=== PATIENT | female | born 1950 | race Caucasian/White ===

== ENCOUNTER → 2017-03-29 | Outpatient (CLI) | payer MEDICARE ==
--- NOTE | 2017-03-29 14:29 | CT ---
EXAMINATION TYPE: CT chest wo con DATE OF EXAM: 03/29/2017 COMPARISON: 06/12/2016 HISTORY: Abnormal findings of lung field CT DLP: 151.30 mGycm, Automated exposure control for dose reduction was used. CONTRAST: Performed injected with 0 mL of Omnipaque 300. TECHNIQUE: Axial images were obtained at 5 mm thick sections. Reconstructed images are reviewed on [employer] computer in the coronal plane. FINDINGS: Portion of the thyroid visualized is normal. No suspicious lung nodules or focal infiltrates are present. Some chronic apical scarring appears to be present. Previous punctate nodularity in the posterior peripheral right lung is less well visualized currently is present series 4 image 16. The right upper lobe nodule previously identified is not evident on th e current examination. The 0.6 cm pleural-based nodule within the lingula is stable, series 4 image 3 6. No enlarged mediastinal or hilar adenopathy is evident. The ascending aorta diameter at the level o f the main pulmonary artery is 2.9 cm. The main pulmonary artery diameter at the bifurcation is 2.0 cm. Minimal pericardial effusion may be present. Limited CT sections are obtained through the upper abdomen. Abdomen is essentially unremarkable. IMPRESSIONS: 1. Minimal pericardial effusion. 2. Stable punctate nodularities within the lung carter.
== END | disposition home or self-care (01) ==
LOC: RADCTMAIN 12:42
PROVIDERS: ATTEND Family Medicine
DX: R91.8 Other nonspecific abnormal finding of lung field (principal); I31.3 Pericardial effusion (noninflammatory)
CPT/HCPCS: 71250

== ENCOUNTER → 2017-04-03 | Outpatient (CLI) | payer MEDICARE ==
--- NOTE | 2017-04-04 10:59 | ECHOF ---
Referral Reason:Pericardial Effusion I31.3 MEASUREMENTS -------- HEIGHT: 162.6 cm WEIGHT: 59.9 kg BP: IVSd: 1.0 cm (0.6 - 1.1) LVIDd: 4.2 cm (3.9 - 5.3) LVPWd: 0.9 cm (0.6 - 1.1) IVSs: 1.1 cm LVIDs: 3.1 cm LVPWs: 0.8 cm LA Diam: 2.6 cm (2.7 - 3.8) LAESV Index (A-L): 31.61 ml/m Ao Diam: 2.7 cm (2.0 - 3.7) AV Cusp: 1.7 cm (1.5 - 2.6) LA Diam: 3.0 cm (2.7 - 3.8) MV EXCURSION: 27.332 mm (> 18.000) MV EF SLOPE: 132 mm/s (70 - 150) EPSS: 0.3 cm MV E Ed: 0.74 m/s MV DecT: 186 ms MV A Ed: 0.22 m/s MV E/A Ratio: 3.35 RAP: 5.00 mmHg RVSP: 17.61 mmHg FINDINGS -------- Sinus rhythm. This was a technically good study. LV size, wall thickness and systolic function are normal, with an EF greater than 55%. The right ventricle is normal in size. LA is midly dilated 29-33ml/m2. The right atrial size is normal. The aortic valve is trileaflet, and appears structurally normal. No aortic stenosis or regurgitation. Mild mitral regurgitation is present. Mild tricuspid regurgitation present. There is no evidence of pulmonary hypertension. The right ventricular systolic pressure, as measured by Doppler, is 17.61mmHg. Trace/mild (physiologic) pulmonic regurgitation. The aortic root size is normal. There is a trivial pericardial effusion present. CONCLUSIONS -------- 1. LV size, wall thickness and systolic function are normal, with an EF greater than 55%. 2. LA is midly dilated 29-33ml/m2. 3. Mild mitral regurgitation is present. 4. Mild tricuspid regurgitation present. 5. There is no evidence of pulmonary hypertension. 6. The right ventricular systolic pressure, as measured by Doppler, is 17.61mmHg. 7. Trace/mild (physiologic) pulmonic regurgitation. 8. There is a trivial pericardial effusion present. PERFECT BINDER OPERATOR: Cami Paulino RDCS
== END | disposition home or self-care (01) ==
LOC: RADECHMAIN 14:39
PROVIDERS: ATTEND Family Medicine
DX: I31.3 Pericardial effusion (noninflammatory) (principal); I08.1 Rheumatic disorders of both mitral and tricuspid valves
CPT/HCPCS: 93306

== ENCOUNTER → 2018-02-15 | Outpatient (CLI) | payer MEDICARE ==
--- NOTE | 2018-02-19 07:23 | MM ---
Reason for exam: screening (asymptomatic). Last mammogram was performed 2 years and 1 month ago. History: Patient is postmenopausal and history of other cancer. Family history of breast cancer in paternal grandmother. Physical Findings: A clinical breast exam by your physician is recommended on an annual basis and results should be correlated with mammographic findings. MG 3D Screening Mammo W/Cad Bilateral CC and MLO view(s) were taken. Prior study comparison: January 27, 2016, bilateral MG 3d screening mammo w/cad. September 21, 2014, bilateral MG screening mammo w CAD. There are scattered fibroglandular densities. No significant changes when compared with prior studies. ASSESSMENT: Benign, BI-RAD 2 RECOMMENDATION: Routine screening mammogram of both breasts in 1 year.
== END | disposition home or self-care (01) ==
LOC: RADMAMWWP 08:41
PROVIDERS: ATTEND Family Medicine
DX: Z12.31 Encounter for screening mammogram for malignant neoplasm of breast (principal)
CPT/HCPCS: 77063; 77067

== ENCOUNTER → 2019-02-28 | Outpatient (CLI) | payer MEDICARE ==
--- NOTE | 2019-03-04 08:12 | MM ---
Reason for exam: screening (asymptomatic). Last mammogram was performed 1 year ago. History: Patient is postmenopausal and history of other cancer. Family history of breast cancer in paternal grandmother. Physical Findings: A clinical breast exam by your physician is recommended on an annual basis and results should be correlated with mammographic findings. MG 3D Screening Mammo W/Cad Bilateral CC and MLO view(s) were taken. Prior study comparison: February 15, 2018, bilateral MG 3d screening mammo w/cad. January 27, 2016, bilateral MG 3d screening mammo w/cad. The breast tissue is heterogeneously dense. This may lower the sensitivity of mammography. There is chronic nodularity in the right breast. No significant changes when compared with prior studies. ASSESSMENT: Benign, BI-RAD 2 RECOMMENDATION: Routine screening mammogram of both breasts in 1 year.
== END | disposition home or self-care (01) ==
LOC: RADMAMWWP 07:44
PROVIDERS: ATTEND Family Medicine
DX: Z12.31 Encounter for screening mammogram for malignant neoplasm of breast (principal)
CPT/HCPCS: 77063; 77067